=== PATIENT | male | born 1955 | race Caucasian/White ===

== ENCOUNTER 2018-02-12 08:00 | Emergency (ER) | payer MEDICAID ==
[2018-02-12 08:28] VITALS: BMI 24.5
[2018-02-12 08:32] VITALS: RESP 18
--- NOTE | 2018-02-12 08:59 | ED PDOC ---
Arrival/HPI - General Chief Complaint: Fever Time Seen by Provider: 02/12/18 08:58 Historian: Patient - History of Present Illness Narrative History of Present Illness (Text): 02/12/18 09:00 62 year old patient, whose PMH includes hypertension complaining of subjective fever, associated with diffuse headache, sore throat, cough (productive for yellow sputum), and shortness of breath. Pt also complains of diffuse body pain/ aches, pt states decr appetite, no chills/sweats, no cp/palpitations, no abd pain, no n/v, no numbness/tingling; Patient took Tylenol with no significant relief. pt states no sick contact, no trauma/travel; pt is here for further eval. pt without other complaints. pt denied LOC/lightheadedness pt received last flu shot last year pt also states for the last 3 years with intermittent constipation, pt states last BM was yesterday but it was particularly hard PMD: Dr. Aaron Time/Duration: < week Symptom Onset: Sudden Symptom Course: Unchanged Quality: Aching Severity Level: Moderate Activities at Onset: Rest Context: Home Past Medical History - Provider Review Nursing Documentation Reviewed: Yes - Travel History Have you recently traveled outside [place] w/in the past 3 mons?: No - Past History Past History: No Previous - Infectious Disease Hx of Infectious Diseases: None - Cardiac Hx Cardiac Disorders: Yes Hx Hypertension: Yes - Pulmonary Hx Respiratory Disorders: No - Neurological Hx Neurological Disorder: No - HEENT Hx HEENT Disorder: No - Renal Hx Renal Disorder: No - Endocrine/Metabolic Hx Endocrine Disorders: No - Hematological/Oncological Hx Blood Disorders: No - Integumentary Hx Dermatological Disorder: No - Musculoskeletal/Rheumatological Hx Musculoskeletal Disorders: No - Gastrointestinal Hx Gastrointestinal Disorders: Yes Hx Gastroesophageal Reflux: Yes - Genitourinary/Gynecological Hx Genitourinary Disorders: No - Psychiatric Hx Psychophysiologic Disorder: No Hx Substance Use: No - Surgical History Other/Comment: hernia repair - Anesthesia Hx Anesthesia: Yes Hx Anesthesia Reactions: No Hx Malignant Hyperthermia: No - Suicidal Assessment Feels Threatened In Home Enviroment: No Family/Social History - Physician Review Nursing Documentation Reviewed: Yes Family/Social History: Unknown Family HX Smoking Status: Never Smoked Hx Alcohol Use: No Hx Substance Use: No Hx Substance Use Treatment: No Allergies/Home Meds Allergies/Adverse Reactions: Allergies No Known Allergies Allergy (Verified 02/12/18 08:32) Review of Systems - Review of Systems Constitutional: Fevers. absent: Fatigue Eyes: absent: Vision Changes, Photophobia ENT: Sore Throat, Sinus Congestion Respiratory: SOB, Cough, Sputum (yellow) Cardiovascular: absent: Chest Pain Gastrointestinal: absent: Abdominal Pain Genitourinary Male: absent: Dysuria, Frequency Musculoskeletal: Myalgias. absent: Arthralgias, Back Pain, Neck Pain, Joint Swelling Skin: absent: Rash Neurological: Headache. absent: Dizziness Endocrine: absent: Diaphoresis Hemo/Lymphatic: Normal Psychiatric: Normal Physical Exam Vital Signs Reviewed: Yes Vital Signs Temp Pulse Resp BP Pulse Ox 02/12/18 12:39 18 99 02/12/18 10:44 98.9 F 101 H 18 117/73 96 02/12/18 08:27 99.5 F 105 H 18 125/74 97 Temperature: Afebrile Blood Pressure: Normal Pulse: Tachycardic Respiratory Rate: Normal Appearance: Positive for: Well-Appearing, Non-Toxic, Uncomfortable, Other (alert /awake, uncomfortable, cooperative, resting in bed, follows command with ease, active coughing is noted, NAD, GCS = 15) Pain Distress: None Mental Status: Positive for: Alert and Oriented X 3 - Systems Exam Head: Present: Atraumatic, Normocephalic Pupils: Present: PERRL, Other (no photophoba, sclera anicteric, no nystagmus) Extroacular Muscles: Present: EOMI Conjunctiva: Present: Normal Ears: Present: Normal, NORMAL TM Mouth: Present: Dry, Normal Teeth, Other (uvula/tongue are midline, no exudate/ lesions, no drooling/stridor, no dysphonia; + congested appearing) Pharnyx: Present: Normal Nose (External): Present: Atraumatic Nose (Internal): Present: Normal Inspection Neck: Present: Normal Range of Motion, Trachea Midline, Other (intact ROM, no midline tenderness, no meningeal signs, no step off). No: Meningeal Signs, MIDLINE TENDERNESS Respiratory/Chest: Present: Clear to Auscultation, Good Air Exchange, Other ( CTA b/l, no w/r/r, no tachypenia). No: Respiratory Distress, Accessory Muscle Use Cardiovascular: Present: Regular Rate and Rhythm, Normal S1, S2. No: Murmurs Abdomen: Present: Normal Bowel Sounds, Other (well nourished male, no focal tenderness, no brown's sign, no mcburney's point tenderness, no masses/rebound/ guarding/rigidity) Back: Present: Normal Inspection. No: CVA Tenderness, Midline Tenderness Upper Extremity: Present: Normal Inspection, Normal ROM, NORMAL PULSES, Neurovascularly Intact. No: Deformity Lower Extremity: Present: Normal Inspection, NORMAL PULSES, Normal ROM, Neurovascularly Intact. No: Delvin's Sign, Deformity Neurological: Present: GCS=15, CN II-XII Intact, Speech Normal Skin: Present: Warm, Normal Color, Other (cap refill ~ 1sec, no ulcerations, no petechiae, no rashes) Lymphatic: Present: Other (+ left posterior/auricular LAD vs neck cyst) Psychiatric: Present: Alert, Oriented x 3, Normal Insight, Normal Concentration Medical Decision Making ED Course and Treatment: 02/12/18 09:30 Impression: fever/[place]/congestion/sore throat/coughing i have consider all the differential diagnosis regarding pt's chief medical complaints/clinical findings, including but are not limited to: r/o viral, r/o pna? A/P: fever/[place]/congestion/sore throat/coughing - labs - iv - xray - flu/strept test - supportive care - observe/reevaluation 02/12/18 12:16 pt is doing well pt is comfortable vital signs are stable pt is made aware of his medical results pt is encouraged fluid hydration pt will f/u as directed pt will be discharged home Re-evaluation Time: 12:15 Reassessment Condition: Improved - Lab Interpretations Lab Results: 02/12/18 09:38 02/12/18 09:38 Lab Results 02/12/18 12:30: Urine Color Yellow, Urine Appearance Clear, Urine pH 6.0, Ur Specific [place] 1.020, Urine Protein Negative, Urine Glucose (UA) Negative, Urine Ketones Negative, Urine Blood Trace-intact H, Urine Nitrate Negative, Urine Bilirubin Negative, Urine Urobilinogen 0.2, Ur Leukocyte Esterase Negative , Urine RBC Pending, Urine WBC Pending 02/12/18 09:38: Influenza Typ A,B (EIA) Negative for flu a/b 02/12/18 09:38: Sodium 141, Chloride 104, Potassium 4.6, Carbon Dioxide 27, Anion Gap 15, BUN 14, Creatinine 1.0, Est GFR ( Amer) > 60, Est GFR (Non- Af Amer) > 60, Random Glucose 108, Calcium 9.3, Total Bilirubin 0.5, AST 28, ALT 29, Alkaline Phosphatase 110, Total Protein 8.0, Albumin 4.4, Globulin 3.6, Albumin/Globulin Ratio 1.2 02/12/18 09:38: WBC 10.9 D, RBC 5.55, Hgb 15.7, Hct 45.9, MCV 82.7, MCH 28.3, MCHC 34.2, RDW 12.8, Plt Count 233, MPV 9.4, Gran % 64.8, Lymph % (Auto) 20.2 L , [place] % (Auto) 12.1 H, Eos % (Auto) 2.6, Baso % (Auto) 0.3, Gran # 7.08 H, Lymph # (Auto) 2.2, [place] # (Auto) 1.3 H, Eos # (Auto) 0.3, Baso # (Auto) 0.03 02/12/18 09:38: pO2 17 L, VBG pH 7.35, VBG pCO2 50.0, VBG HCO3 27.6, VBG Total CO2 29.1 H, VBG O2 Sat (Calc) 31.7 L, VBG Base Excess 1.2, VBG Potassium 4.4, Sodium 138.0, Chloride 105.0, Glucose 109, Lactate 1.6, FiO2 21.0, Venous Blood Potassium 4.4 02/12/18 09:38: Grp A Beta Strep Ag Negative I have reviewed the lab results: Yes Interpretation: All labs normal - RAD Interpretation Narrative RAD Interpretations (Text): 02/12/18 12:18 NAD Radiology Orders: 02/12/18 11:32 CHEST TWO VIEWS (PA/LAT) [RAD] Stat Floor Covering Contractor: ED Physician - Medication Orders Current Medication Orders: Discontinued Medications Albuterol/Ipratropium (Duoneb 3 Mg/0.5 Mg (3 Ml) Ud) 3 ml IH STAT STA Stop: 02/12/18 09:22 Last Admin: 02/12/18 10:01 Dose: 3 ml Azithromycin (Zithromax) 500 mg PO STAT STA PRN Reason: Protocol Stop: 02/12/18 11:35 Last Admin: 02/12/18 12:37 Dose: 500 mg Guaifenesin/Dextromethorphan (Robitussin Dm) 10 ml PO ONCE ONE Stop: 02/12/18 09:22 Last Admin: 02/12/18 10:00 Dose: 10 ml Sodium Chloride (Sodium Chloride 0.9%) 1,000 mls @ 999 mls/hr IV .Q1H1M STA Stop: 02/12/18 10:06 Last Admin: 02/12/18 09:44 Dose: 999 mls/hr eMAR Start Stop Document 02/12/18 09:44 [email or web address] (Rec: 02/12/18 09:44 [email or web address] [id number]) Intravenous Solution Start Date 02/12/18 Start Time 09:44 End Date 02/12/18 Ketorolac Tromethamine (Toradol) 30 mg IVP STAT STA Stop: 02/12/18 09:08 Last Admin: 02/12/18 10:01 Dose: 30 mg MAR Pain Assessment Document 02/12/18 10:01 [email or web address] (Rec: 02/12/18 10:01 [email or web address] [id number]) Pain Reassessment Is this a pain reassessment? No Sleep Is patient sleeping during reassessment? No Presence of Pain Presence of Pain Yes Pain Scale Used Pain Scale Used Numeric Location Pain Location Body Natural Resource Officer Description Description Constant Intensity of Pain at present 5 Pain Behavior Facial Grimacing Aggravating Factors Changing Position Alleviating Factors/Management Medication Techniques Alleviating Factors Medication IVP Administration Document 02/12/18 10:01 [email or web address] (Rec: 02/12/18 10:01 [email or web address] [id number]) Charges for Administration # of IVP Administrations 1 Lidocaine HCl (Lidocaine 2% Viscous) 15 ml MM STAT STA Stop: 02/12/18 09:08 Last Admin: 02/12/18 10:01 Dose: 15 ml - Scribe Statement The provider has reviewed the documentation as recorded by the Janes Quintana Provider Scribe Attestation: All medical record entries made by the Scribe were at my direction and personally dictated by me. I have reviewed the chart and agree that the record accurately reflects my personal performance of the history, physical exam, medical decision making, and the department course for this patient. I have also personally directed, reviewed, and agree with the discharge instructions and disposition. Disposition/Present on Arrival - Present on Arrival Any Indicators Present on Arrival: No History of DVT/PE: No History of Uncontrolled Diabetes: No Urinary Catheter: No History of Decub. Ulcer: No History Surgical Site Infection Following: None - Disposition Have Diagnosis and Disposition been Completed?: Yes Diagnosis: Bronchitis, acute, Dehydration, Malaise and fatigue Disposition: HOME/ ROUTINE Disposition Time: 12:08 Patient Plan: Discharge Condition: STABLE Discharge Instructions (ExitCare): Dehydration, Adult (DC), Fatigue (DC), Acute Bronchitis Print Language: HUNGARIAN Additional Instructions: Make sure to see your doctor in 1-2 days DRINK PLENTY OF FLUIDS take your medications as prescribed RETURN TO ED IF worse pain, cant breath, persistent vomiting, high fever >101- 102 for hours, altered behavior, slurr speech, facial changes, focal weakness ( arm/leg or both), unable to urinate, heavy/persistent bleeding, passing out, chest pain, or other medical emergencies Prescriptions: Azithromycin [Zithromax] 250 mg PO DAILY #4 tab Benzonatate [Tessalon Perle] 100 mg PO TID PRN #15 capsule PRN Reason: Cough Ibuprofen [Motrin] 600 mg PO QID PRN #30 tab PRN Reason: Fever >100.4 F Referrals: Jessica Jain MD [Family Provider] - Follow up with primary Forms: [employer] (Chinese), WORK NOTE
[2018-02-12] MEDS ORDERED: Sodium Chloride 0.9% 1,000 ML IV STA (09:06)
[2018-02-12] MEDS ORDERED: Albuterol-Ipratrop 3 mg / 0.5 (3 ml) UD IH STA (09:21)
[2018-02-12] MEDS ORDERED: guaiFENesin DM 200 mg-20 mg/10 ml UD PO ONE (09:21)
[2018-02-12 09:55] LABS: VENOUS BLOOD GAS BASE EXCESS 1.2 mmol/L (0.0-2.0); VENOUS BLOOD GAS PO2 17 mm/Hg (30-55); VENOUS BLOOD PH 7.35 (7.32-7.43)
[2018-02-12 09:59] LABS: BASO # 0.03 K/mm3 (0.0-2.0); BASO % 0.3 % (0.0-3.0); EOS # 0.3 (0.0-0.7); EOS % 2.6 % (1.5-5.0); GRAN # 7.08 (1.4-6.5); GRAN % 64.8 % (50.0-68.0); HEMOGLOBIN 15.7 g/dL (14.0-18.0); LYMPH # 2.2 (1.2-3.4); LYMPH % 20.2 % (22.0-35.0); MEAN CELL VOLUME 82.7 fl (80.0-105.0); MEAN CORPUSCULAR HEMOGLOBIN 28.3 pg (25.0-35.0); MEAN CORPUSCULAR HGB CONC 34.2 g/dl (31.0-37.0); MEAN PLATELET VOLUME 9.4 fl (7.0-11.0); MONO # 1.3 (0.1-0.6); MONO % 12.1 % (1.0-6.0); RBC 5.55 10^6/uL (3.5-6.1); RED CELL DISTRIBUTION WIDTH 12.8 % (11.5-14.5); WHITE BLOOD COUNT 10.9 10^3/ul (4.5-11.0)
[2018-02-12 10:20] LABS: ALB/GLOB RATIO 1.2 (1.1-1.8); ALBUMIN 4.4 g/dL (3.0-4.8); ALT/SGPT 29 U/L (7-56); AST/SGOT 28 U/L (17-59); BLOOD UREA NITROGEN 14 mg/dL (7-21); CALCIUM 9.3 mg/dL (8.4-10.5); GFR AFRICAN-AMERICAN > 60; GFR NON-AFRICAN AMERICAN > 60
[2018-02-12 10:45] VITALS: BP 117/73; PULSE 101; TEMP 98.9
[2018-02-12 12:39] VITALS: O2SAT 99
[2018-02-12 12:49] LABS: URINE BILIRUBIN NEGATIVE (NEGATIVE); URINE BLOOD TRACE-INTACT (NEGATIVE); URINE GLUCOSE (UA) NEGATIVE (NEGATIVE); URINE LEUKOCYTE ESTERASE NEGATIVE Leu/uL (NEGATIVE); URINE PROTEIN NEGATIVE mg/dL (<30 mg/dL); URINE UROBILINOGEN 0.2 E.U./dL (<1 E.U./dL)
[2018-02-12 12:51] LABS: URINE APPEARANCE CLEAR (CLEAR); URINE COLOR YELLOW (YELLOW)
[2018-02-12 12:53] LABS: URINE BACTERIA FEW (NEG); URINE WBC 0 - 2 /hpf (0-6)
== END 2018-02-12 12:39 | disposition home or self-care (01) ==
LOC: ED 08:00
DX: J20.9 Acute bronchitis, unspecified (principal); E86.0 Dehydration; R53.83 Other fatigue; R53.81 Other malaise; I10 Essential (primary) hypertension
CPT/HCPCS: 71046; 80053; 81001; 82803; 85025; 87070; 87430; 87804; 96374; 99284; J1885; J7040